=== PATIENT | female | born 1995 | race Caucasian/White ===

== ENCOUNTER 2021-05-31 07:35 | Outpatient (RCR) | END 2021-05-31 15:00 | disposition home or self-care (01) | LOC: M EMP 07:35 | PROVIDERS: ATTEND Pediatrics | DX: Z11.52 Encounter for screening for COVID-19 (principal) ==

== ENCOUNTER → 2021-07-31 | Outpatient (REF) | LOC: M LABSMTC 09:24 | PROVIDERS: ATTEND Family Medicine | DX: Z20.822 Contact with and (suspected) exposure to COVID-19 (principal) ==

== ENCOUNTER 2021-10-18 15:18 | Emergency (ER) | payer BC, OTHER ==
[~2021-10-18] VITALS: Ht 172.7 cm; Wt 111.6 kg
[2021-10-18 16:29] LABS: RSV AMPLIFICATION NEGATIVE (NEGATIVE)
[2021-10-18] MEDS ORDERED: ACETAMINOPHEN 325 MG TAB PO ONE (17:45)
[2021-10-18 17:49] VITALS: BP 138/82
== END 2021-10-18 17:50 | disposition home or self-care (01) ==
LOC: M ED 15:18
DX: U07.1 COVID-19 (principal)

== ENCOUNTER 2022-08-03 21:56 | Emergency (ER) | payer BC, OTHER ==
[~2022-08-03] VITALS: Ht 172.7 cm; Wt 110.7 kg
[2022-08-03 21:58] VITALS: BP 141/90
[2022-08-03] MEDS ORDERED: KETOROLAC TROMETHAMINE 10 MG TAB PO ONE (23:00)
[2022-08-03] MEDS ORDERED: guaiFENesin SYRUP 200MG 10ML UDC PO ONE (23:20)
[2022-08-03] MEDS ORDERED: ONDA4TAB6 PO (23:33)
[2022-08-03] MEDS ORDERED: OSEL75CA PO (23:33)
[2022-08-03] MEDS ORDERED: OSELTAMIVIR PHOSPHATE 75 MG CAP (TAMIFLU) PO ONE (23:35)
== END 2022-08-04 00:06 | disposition home or self-care (01) ==
LOC: M ED 21:56
DX: J09.X2 Influenza due to identified novel influenza A virus with other respiratory manifestations (principal); F41.9 Anxiety disorder, unspecified; Z79.83 Long term (current) use of bisphosphonates